=== PATIENT | male | born 2005 | race Caucasian/White ===

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

== ENCOUNTER 2023-06-23 17:01 | Emergency (ER) | payer OTHER ==
--- NOTE | 2023-06-23 18:00 | ED Physician Documentation ---
PD HPI ABD PAIN - Stated complaint Stated Complaint: VOMITING - Chief complaint Chief Complaint: Abd Pain - History obtained from History obtained from: Patient - Additional information Additional information: 18-year-old presents with father by private vehicle. He has had abdominal pain and vomiting for a week. Similar episodes in the past and 2 months ago had GI consultation with upper and lower endoscopies and was diagnosed with celiac disease. I queried if he is avoiding gluten and he is response is "as best as I can." Central abdominal pain for a week with vomiting, nonbloody. No surgeries in the past. He does use marijuana daily. PD PAST MEDICAL HISTORY - Past Medical History Cardiovascular: None Respiratory: None Neuro: None Endocrine/Autoimmune: None GI: None : None HEENT: None Psych: Depression, Anxiety Musculoskeletal: Chronic back pain Derm: None - Past Surgical History Past Surgical History: No - Present Medications Home Medications: Ambulatory Orders Medication Instructions Recorded Confirmed DULoxetine [Cymbalta] 40 mg PO DAILY 02/13/22 06/23/23 Ondansetron Odt [Zofran] 4 mg TL Q6H PRN #10 tablet 06/23/23 - Allergies Allergies/Adverse Reactions: Allergies Allergy/AdvReac Type Severity Reaction Status Date / Time amoxicillin Allergy Rash Verified 06/23/23 17:09 Penicillins Allergy Rash Verified 06/23/23 17:09 - Social History Does the pt smoke?: No Smoking Status: Never smoker Does the pt drink ETOH?: No Does the pt have substance abuse?: No - Immunizations Immunizations are current?: Yes PD ED PE NORMAL - Vitals Vital signs reviewed: Yes - General General: Other (He is pale and appears quite uncomfortable with retching. He is quite thin.) - HEENT HEENT: Pharynx benign - Neck Neck: Supple, no meningeal sign, No bony TTP - Cardiac Cardiac: RRR, No murmur - Respiratory Respiratory: No respiratory distress, Clear bilaterally - Abdomen Abdomen: Normal bowel sounds, Soft, Other (Mild upper abdominal tenderness without surgical signs) - Neuro Neuro: Alert and oriented X 3, Normal speech - Psych Psych: Normal mood, Normal affect Results - Vitals Vitals: Vital Signs - 24 hr 06/23/23 06/23/23 06/23/23 17:04 19:03 19:10 Temperature 36.2 C L 37.2 C Heart Rate 88 97 95 Respiratory 16 20 16 Rate Blood Pressure 128/103 H 91/46 L 107/58 L O2 Saturation 100 99 100 Oxygen O2 Source Room air - Labs Labs: Laboratory Tests 06/23/23 06/23/23 18:00 18:00 WBC 19.3 H RBC 5.28 Hgb 15.6 Hct 45.9 MCV 86.9 MCH 29.5 MCHC 34.0 RDW 12.0 Plt Count 385 MPV 9.3 Neut # (Auto) 17.4 H Lymph # (Auto) 1.1 [place] # (Auto) 0.7 Eos # (Auto) 0.0 Baso # (Auto) 0.0 Absolute Nucleated RBC 0.00 Nucleated RBC % 0.0 Sodium 141 Potassium 3.8 Chloride 103 Carbon Dioxide 23 Anion Gap 15.0 H BUN 14 Creatinine 0.9 Estimated GFR (MDRD) 108 Glucose 159 H Calcium 11.2 H Magnesium 1.6 L Total Bilirubin 0.7 AST 25 ALT 20 Alkaline Phosphatase 90 Total Protein 8.2 Albumin 5.3 Globulin 2.9 Albumin/Globulin Ratio 1.8 Lipase 14 - Rads (name of study) CT of the abdomen pelvis with IV contrast was unremarkable Relevant Findings:: Final report received, EMP independent interpretation of test PD Medical Decision Making - ED course ED course: 18-year-old with daily cannabis use and celiac disease presents with abdominal pain and vomiting and he appears quite uncomfortable. After the administration of IV droperidol and Dilaudid he was pain-free, nontender and feeling much better. A CT was done noting the CBC showed a white count of 19,000 which was negative for acute surgical findings. His blood work was also notable for mild hypomagnesemia repleted IV. He did pass a p.o. challenge before discharge and counseled on follow-up and return precautions. Departure - Departure Disposition: 01 Home, Self Care Clinical Impression: Abdominal pain Qualifiers: Abdominal location: generalized Qualified Code(s): R10.84 - Generalized abdominal pain Vomiting Qualifiers: Vomiting type: unspecified Nausea presence: with nausea Qualified Code(s): R11.2 - Nausea with vomiting, unspecified Condition: Good Record reviewed to determine appropriate education?: Yes Instructions: ED Nausea Vomiting Prescriptions: Ondansetron Odt [Zofran] 4 mg TL Q6H PRN #10 tablet PRN Reason: Nausea / Vomiting Comments: Unclear if the cause of your symptoms was cannabinoid hyperemesis or the celiac disease or may be a bit of both. Would recommend staying away from gluten and cannabis. Talk with your primary care physician about a referral for psychiatry given that you are using cannabis predominantly for anxiety and the may be better treatments available for this. Return if worse. Blood work was only notable for the elevated white count for which we did a CAT scan to make sure it was not a serious issue and that was negative. He also had mildly low magnesium which we did give you an IV dose of. Forms: PCP List
[2023-06-23 18:08] LABS: BASOPHILS % (AUTO) 0.2 %; HCT - HEMATOCRIT 45.9 % (42.0-52.0); HGB - HEMOGLOBIN 15.6 g/dL (14.0-18.0); LYMPHOCYTES # (AUTO) 1.1 10^3/uL (1.5-3.5); LYMPHOCYTES % (AUTO) 5.6 %; MEAN CORPUSCULAR HEMOGLOBIN 29.5 pg (27.0-31.0); MEAN CORPUSCULAR VOLUME 86.9 fL (80.0-94.0); MEAN PLATELET VOLUME 9.3 fL (7.4-11.4); MONOCYTES # (AUTO) 0.7 10^3/uL (0.0-1.0); MONOCYTES % (AUTO) 3.6 %; NEUTROPHILS # (AUTO) 17.4 10^3/uL (1.5-6.6); NEUTROPHILS % (AUTO) 90.2 %; PLT - PLATELET COUNT 385 10^3/uL (130-450); RED BLOOD COUNT 5.28 10^6/uL (4.70-6.10); WHITE BLOOD COUNT 19.3 x10^3/uL (4.8-10.8)
[2023-06-23] MEDS: HYDROmorphone 1 MG/ML CARPUJECT IVP STA (18:10)
[2023-06-23] MEDS: SODIUM CHLORIDE 0.9% 1,000 ML IV STA (18:10)
[2023-06-23] MEDS: DROPERIDOL 5 MG/2 ML VIAL IVP STA (18:10)
[2023-06-23 18:23] LABS: ALBUMIN 5.3 g/dL (3.2-5.5); ALBUMIN/GLOBULIN RATIO 1.8 (1.0-2.2); BILIRUBIN,TOTAL 0.7 mg/dL (0.2-1.0); CALCIUM 11.2 mg/dL (8.5-10.3); CREATININE 0.9 mg/dL (0.6-1.3); MAGNESIUM 1.6 mg/dL (1.7-2.3); POTASSIUM 3.8 mmol/L (3.5-4.5); TOTAL PROTEIN 8.2 g/dL (6.4-8.9)
[2023-06-23] MEDS ORDERED: iohexoL-300 100 ML VIAL ONE (18:39)
[2023-06-23] MEDS: iohexoL-300 100 ML VIAL IVP ONE (18:56)
[2023-06-23] MEDS: MAGNESIUM SULFATE 2 GRAM 2 GM/50 ML BAG IV ONE (18:58)
--- NOTE | 2023-06-23 19:02 | CT Report ---
PROCEDURE: Abdomen/Pelvis W INDICATIONS: IV only, abd pain CONTRAST: 100ml omni 300 TECHNIQUE: After the administration of intravenous contrast, a CT scan of the abdomen and pelvis was performed. Images were recorded and evaluated at appropriate window settings. Reformats: coronal and sagittal. F or radiation dose reduction, the following was used: automated exposure control, adjustment of mA and /or kV according to patient size. COMPARISON: 07/24/2022 FINDINGS: Image quality: This study is limited by a paucity of intra-abdominal fat. Lower chest: Unremarkable. Liver: No solid mass. Gallbladder and biliary tree: Within normal limits. Spleen: No splenomegaly. Pancreas: No pancreatic ductal dilation. Adrenals: No adrenal nodule. Kidneys and ureters: No hydronephrosis. No renal cystic lesion which requires follow up. No solid mas s. Stomach, bowel and peritoneum: No bowel distension. No pathologic free fluid. The stomach demonstrate s no significant abnormality. A normal appendix is partially seen, as on series 2 image 98 and on series 4 image 82. Lymph nodes: No central or retroperitoneal adenopathy. Vessels: No infrarenal aortic aneurysm. PELVIS Reproductive organs: Unremarkable. Bladder: No abnormal wall thickening, accounting for underdistention. Pelvic lymph nodes: No pelvic adenopathy by size criteria. Bones: No aggressive osseous abnormality. This patient has transitional anatomy. For the purposes of this examination, the level with tiny vest igial ribs is considered to be T12. By this numbering scheme, the L5 level is partially sacralized on the left. Other: No significant ventral or inguinal hernia. IMPRESSION: No acute abnormality is seen. Normal appendix. 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
[2023-06-23 19:23] VITALS: BP 107/58; O2SAT 100
[2023-06-23] MEDS: ONDANSETRON ODT 4 MG Prepack 2 TL STA (19:30)
== END 2023-06-23 19:45 | disposition home or self-care (01) ==
LOC: ED 17:01
DX: R10.84 Generalized abdominal pain (principal); R11.2 Nausea with vomiting, unspecified
CPT/HCPCS: 36415; 74177; 80053; 83690; 83735; 85025; 96365; 96375; 99284; J1170; Q9967